=== PATIENT | male | born 1995 | race Caucasian/White ===

== ENCOUNTER 2020-03-31 06:19 | Emergency (ER) | payer MEDICAID ==
[~2020-03-31] VITALS: Ht 182.9 cm; Wt 67.0 kg
--- NOTE | 2020-03-31 06:52 | NUR ---
PATIENT UP TO THE BATHROOM.
[2020-03-31] MEDS ORDERED: normal saline 1000ML IV soln IVB ONE (06:55)
[2020-03-31] MEDS ORDERED: ondansetron/PF 4mg/2ml inj IV ONE (07:00)
[2020-03-31] MEDS ORDERED: morphine 4 MG/ML inj SYRINge IV ONE (07:00)
[2020-03-31 07:36] LABS: BASOPHILS % (AUTO) 0.4 % (0-1); EOSINOPHILS % (AUTO) 0.4 % (0-6); HEMATOCRIT 44.2 % (42.0-52.0); HEMOGLOBIN 15.4 g/dl (14.0-17.9); LYMPHOCYTES # (AUTO) 1.5 X10'3 (1.1-4.8); LYMPHOCYTES % (AUTO) 15.5 % (21-51); MEAN CORPUSCULAR HEMOGLOBIN 29.6 PG (27.0-31.0); MEAN CORPUSCULAR HGB CONC 34.7 g/dL (33.0-36.5); MEAN CORPUSCULAR VOLUME 85.2 FL (78-98); MEAN PLATELET VOLUME 7.9 FL (7.4-10.4); MONOCYTES # (AUTO) 0.6 X10'3 (0-0.9); MONOCYTES % (AUTO) 6.5 % (2-12); NEUTROPHILS # (AUTO) 7.7 X10'3 (1.8-7.7); NEUTROPHILS % (AUTO) 77.2 % (42-75); PLATELET COUNT 312 X10'3 (140-440); RED BLOOD COUNT 5.19 X10'6 (4.70-6.10); WHITE BLOOD COUNT 9.9 X10'3 (4.5-11.0)
--- NOTE | 2020-03-31 07:39 | NUR ---
PATIENT STILL C/O 03/04 ABDOMINAL PAIN,NOT RELIEVE AT ALL WITH MORPHINE, MADE AWARE.WILL ORDER HALDOL.
[2020-03-31 07:40] LABS: ALANINE AMINOTRANSFERASE 23 U/L (12-78); ALBUMIN 4.8 G/DL (3.4-5.0); ALBUMIN/GLOBULIN RATIO 1.2 (1.1-1.5); ALKALINE PHOSPHATASE 86 IU/L (46-116); ANION GAP 10 (8-16); ASPARTATE AMINO TRANSFERASE 17 U/L (10-37); BILIRUBIN,TOTAL 0.6 MG/DL (0.1-1.0); BLOOD UREA NITROGEN 14 MG/DL (7-18); BUN/CREATININE RATIO 16.5 (5.4-32.0); CALCIUM 10.2 MG/DL (8.5-10.1); CHLORIDE 100 MMOL/L (99-107); CREATININE 0.85 MG/DL (0.60-1.10); GLUCOSE 238 MG/DL (70-104); MAGNESIUM 2.1 MG/DL (1.5-2.4); PHOSPHORUS 2.5 MG/DL (2.3-4.5); SODIUM 140 MMOL/L (135-145); TOTAL CARBON DIOXIDE 30.2 MMOL/L (24-32); TOTAL PROTEIN 8.7 G/DL (6.4-8.2); eGFR > 90 ML/MIN
[2020-03-31] MEDS ORDERED: haloperidol lactate 5mg/ml inj IV ONE (07:40)
[2020-03-31 07:41] LABS: POTASSIUM 3.6 MMOL/L (3.5-5.1)
[2020-03-31 07:47] LABS: CLARITY,URINE CLEAR (Clear); COLOR,URINE YELLOW (Yellow); GLUCOSE, URINE >=1000 mg/dl (Neg); KETONES,URINE TRACE mg/dl (Neg); LEUKOCYTE ESTERASE ,URINE NEGATIVE (Neg); NITRITES, URINE NEGATIVE (Neg); OCCULT BLOOD,URINE NEGATIVE (Neg); PH,URINE 8.5 (4.8-8.0); PROTEIN,URINE TRACE mg/dl (Neg)
[2020-03-31] MEDS ORDERED: haloperidol lactate 5mg/ml inj IM ONE (07:50)
[2020-03-31 07:54] VITALS: BP 150/106
[2020-03-31 07:56] LABS: UA COLLECTION TYPE CLN CATCH MIDSTREAM
[2020-03-31] MEDS ORDERED: METO-292 PO (08:20)
--- NOTE | 2020-03-31 08:23 | NUR ---
Pt called me to his bedside, stating his PIV "fell out" of his hand. Area cleaned and dressed.
[2020-03-31 08:30] LABS: BACTERIA,URINE FEW /HPF (Neg); MUCUS STRANDS FEW /LPF (Neg); RBC,URINE 0-2 /HPF (0-2); SQUAMOUS EPITHELIAL CELL,UR FEW /LPF (FEW); WBC,URINE 0-4 /HPF (0-4)
== END 2020-03-31 08:32 | disposition home or self-care (01) ==
LOC: ER 06:21
DX: E11.65 Type 2 diabetes mellitus with hyperglycemia (principal); E11.43 Type 2 diabetes mellitus with diabetic autonomic (poly)neuropathy; K31.84 Gastroparesis; G89.29 Other chronic pain; R10.84 Generalized abdominal pain; E86.0 Dehydration; R11.2 Nausea with vomiting, unspecified; Z79.899 Other long term (current) drug therapy
CPT/HCPCS: 36415; 80053; 81001; 82948; 83735; 84100; 85025; 93005; 96361; 96372; 96374; 96375; 99284; J1630; J2270; J2405; J7030

== ENCOUNTER 2020-08-23 11:48 | Emergency (ER) | payer MEDICAID ==
[~2020-08-23] VITALS: Ht 182.9 cm; Wt 77.3 kg
[~2020-08-23 11:48] MED LIST: METO-292 PO
[2020-08-23 12:07] VITALS: BP 120/84
[2020-08-23] MEDS ORDERED: buprenorphine/naloxone 8MG-2MG SUBlingual film SL STA ×2 (13:43→15:05)
--- NOTE | 2020-08-23 14:04 | NUR ---
PATIENT HERE FOR MEDICAL CLEARANCE FOR DETOX FROM [facility] THAT HE HAS BEEN USING THE LAST TWO MONTHS FOR BACK PAIN
--- NOTE | 2020-08-23 14:40 | NUR ---
BRYNN DE LUNA DISCUSSED MAT THERAPY AND THE GROUPS PROGRAM WITH PATIENT AND MOTHER.
[2020-08-23] MEDS ORDERED: BUPR1FIL3 SL (15:10)
[2020-08-23] MEDS ORDERED: HYDR-3686 PO (15:10)
[2020-08-23] MEDS ORDERED: NALO4SPR NS (15:28)
[2020-08-23] MEDS ORDERED: MELA1TAB28 PO (15:28)
== END 2020-08-23 15:43 | disposition home or self-care (01) ==
LOC: ER 11:48
DX: F11.19 Opioid abuse with unspecified opioid-induced disorder (principal); G89.29 Other chronic pain; E11.9 Type 2 diabetes mellitus without complications; Z79.899 Other long term (current) drug therapy
CPT/HCPCS: 99283